=== PATIENT | female | born 1975 | race African-American/Black ===

== ENCOUNTER 2016-07-01 10:26 | Emergency (ER) | payer OTHER ==
[~2016-07-01] VITALS: Ht 165.1 cm; Wt 129.3 kg
[~2016-07-01 10:26] MED LIST: ACETAMINOPHEN-1 EAC1 PO; AMOXICILLIN 50500 M1 PO; BACTRIM DS TAB1 EACH PO; FLEXERIL PO; FLONASE 0.05%50 MCG NASAL; FLONASE 0.05%50 MCG NS; FLONASE16 GM INH; IBUPROFEN 600600 M1 PO; IBUPROFEN 800800 MG PO; NAPROSYN500 MG PO; NOHOMEMEDICATIONS; NORCO 5-325 TA1 EACH PO; VENTOLIN17 GM INH; ZPAK PO
[2016-07-01] MEDS ORDERED: CLARITIN-D 24 H1 TA1 PO (12:13)
[2016-07-01] MEDS ORDERED: IBUPROFEN 600600 M1 PO (12:15)
[2016-07-01 12:33] VITALS: BP 171/112
== END 2016-07-01 12:51 | disposition home or self-care (01) ==
LOC: ER 10:26
DX: J06.9 Acute upper respiratory infection, unspecified (principal); E66.01 Morbid (severe) obesity due to excess calories; Z98.890 Other specified postprocedural states; F10.99 Alcohol use, unspecified with unspecified alcohol-induced disorder